=== PATIENT | female | born 1950 | race Caucasian/White ===

== ENCOUNTER 2021-05-16 18:31 | Inpatient (IN) ==
[2021-05-17] MEDS ORDERED: Naloxone 0.4 MG/ML INJ IVP PRN (00:32)
[2021-05-17 01:33] LABS: Hematocrit 41.5 % (35.3-44.9); Hemoglobin 13.3 g/dL (11.5-15.4); Mean Corpuscular Hemoglobin 30.2 pg (28.0-33.3); Mean Corpuscular Volume 94.3 fL (83.0-100.0); Mean Platelet Volume 9.5 fL (9.4-12.4); Platelet Count 159 K/mcL (140-400); Red Cell Distribution Width 14.7 % (11.5-14.5); White Blood Count 3.8 K/mcL (4.3-11.1)
[2021-05-17 01:36] LABS: VBG Ionized Calcium 1.09 mmol/L (1.15-1.35)
[2021-05-17 01:44] LABS: INR 1.1; Prothrombin Time 13.1 Seconds (9.4-12.1)
[2021-05-17 01:47] LABS: Activated Partial Thrombo Time 26.5 Seconds (26.0-36.0)
[2021-05-17 01:53] LABS: Calcium 8.1 mg/dL (8.6-10.3); Magnesium 2.8 mg/dL (1.6-2.6); Phosphorous 8.4 mg/dL (2.7-4.5); Potassium 5.1 mEq/L (3.5-5.1)
[2021-05-17] MEDS ORDERED: Vancomycin 1 EACH in 0.9 % Sodium Chloride 250 ML IVPB PRN (02:00)
[2021-05-17] MEDS ORDERED: Vancomycin 1,250 MG/262.5 ML IV.SOLN IVPB ONE ×2 (02:00→06:00)
[2021-05-17] MEDS ORDERED: D5% in Lactated Ringers 1,000 ML IVC SCH (02:00)
[2021-05-17 02:07] LABS: Eosinophils # 0.2 K/mcL (0.0-0.6); Monocytes # 0.1 K/mcL (0.0-1.3); Neutrophils # 2.6 K/mcL (1.6-8.9)
[2021-05-17 02:08] LABS: Platelet Estimate Normal (Normal)
[2021-05-17] MEDS ORDERED: Ringers Solution, Lactated 1,000 ML IVC ONE (02:33)
[2021-05-17] MEDS: Calcium Gluconate 1gm/50mL 1 GM/50 ML BAG IVPB SCH ×2 (02:53→04:10)
[2021-05-17] MEDS ORDERED: Piperacillin/Tazobactam 3.375 GM in 0.9 % Sodium Chloride Mini Bag 100 ML IVPB SCH ×2 (06:00→08:00)
[2021-05-17] MEDS ORDERED: Perflutren Lipid Microsphere 1.3 ML in 0.9 % Sodium Chloride 8.7 ML IVP PRN (07:32)
[2021-05-17] MEDS: Pantoprazole 40 MG VIAL IVP SCH (09:06)
[2021-05-17] MEDS: Aspirin Enteric Coated 81 MG Tablet PO SCH (10:20)
[2021-05-17] MEDS: *HR* Amiodarone 200 MG TABLET PO SCH (10:20)
[2021-05-17] MEDS: Sodium Bicarbonate 150 MEQ in Water for inj. (sterile) 1,000 ML IVC SCH ×2 (10:20→23:34)
[2021-05-17] MEDS: Hydrocortisone Sodium Succ 100 MG/2 ML VIAL IVP SCH ×4 (10:20→23:33)
[2021-05-17 11:28] LABS: Bacteria,Urine Few per hpf (None-Few); Bilirubin,Urine Negative (Negative); Blood,Urine Trace (Negative); Clarity,Urine Turbid (Clear); Color,Urine Light-Yellow (Yellow); Glucose,Urine (UA) 300 mg/dL (Normal); Hyaline Casts,Urine Few per lpf (None Seen); Ketones,Urine Negative (Negative); Leukocyte Esterase,Urine Negative (Negative); Mucus,Urine Few per lpf (None-Few); Nitrite,Urine Negative (Negative); Protein,Urine 50 mg/dL (Neg-Trace); RBC,Urine 0-3 per hpf (0-3); Specific Gravity,Urine 1.016 (1.010-1.025); Squamous Epithelial Cell,Urine Few per hpf (None-Few); Urobilinogen,Urine Normal (Normal)
[2021-05-17 11:29] LABS: Protein/Creatinine Ratio,Urine 2.08 mg/mg (0.00-0.20); Sodium, Urine 107.9 mEq/L
[2021-05-17 11:32] LABS: Potassium 4.6 mEq/L (3.5-5.1)
[2021-05-17 12:33] LABS: Calcium 8.5 mg/dL (8.6-10.3)
[2021-05-17] MEDS ORDERED: *HR* Heparin 10,000 UNIT/10 ML VIAL IV PRN (14:50)
[2021-05-17] MEDS ORDERED: Albumin 25% 25gram/100mL 25 GM/100 ML IV.SOLN IVPB PRN (14:50)
[2021-05-17] MEDS ORDERED: 0.9 % Sodium Chloride 250 ML IVC PRN (14:50)
[2021-05-17] MEDS ORDERED: 0.9 % Sodium Chloride 1,000 ML PRIME SCH (15:00)
[2021-05-17 15:15] LABS: C.difficile Toxin A/B Gene PCR DETECTED (Not detect); Campylobacter by PCR DETECTED (Not detect); Cryptosporidium by PCR Not detected (Not detect); Cyclospora cayetanensis PCR Not detected (Not detect); E. coli O157 by PCR Not detected (Not detect); Entamoeba histolytica PCR Not detected (Not detect); Enteroaggregative E.coli(EAEC) Not detected (Not detect); Enteropathogenic E.coli(EPEC) Not detected (Not detect); Enterotoxigenic E.coli (ETEC) Not detected (Not detect); Plesiomonas shigelloides PCR Not detected (Not detect); Salmonella PCR Not detected (Not detect); Shig/EnteroinvasiveE coli EIEC Not detected (Not detect); Shigalike tox-prod E coli STEC Not detected (Not detect); Vibrio PCR Not detected (Not detect); Vibrio cholerae PCR Not detected (Not detect); Yersinia enterocolitica PCR Not detected (Not detect)
[2021-05-17 15:16] LABS: Adenovirus F 40/41 PCR Not detected (Not detect); Astrovirus PCR Not detected (Not detect); Giardia lamblia PCR Not detected (Not detect); Norovirus GI/GII PCR Not detected (Not detect); Rotavirus A PCR Not detected (Not detect); Sapovirus PCR Not detected (Not detect)
[2021-05-17] MEDS: MetroNIDAZOLE 500 MG/100 ML 500 MG/100 ML BAG IVPB SCH ×2 (16:11→23:33)
[2021-05-17] MEDS: Azithromycin 250 MG TABLET PO SCH (16:11)
[2021-05-17 16:19] LABS: Hepatitis B Surface Antibody < 3.10 mIU/mL
[2021-05-17 16:30] LABS: Hepatitis B Surface Antigen Nonreactive (Nonreactive)
[2021-05-17] MEDS: *HR* Heparin 5,000 UNIT/ML VIAL SQ SCH (18:18)
[2021-05-17 22:28] LABS: Calcium 8.5 mg/dL (8.6-10.3); Potassium 4.7 mEq/L (3.5-5.1)
[2021-05-18] MEDS: Hydrocortisone Sodium Succ 100 MG/2 ML VIAL IVP SCH (05:00)
[2021-05-18] MEDS: *HR* Heparin 5,000 UNIT/ML VIAL SQ SCH ×2 (05:00→17:15)
[2021-05-18 06:12] LABS: Mean Platelet Volume 9.5 fL (9.4-12.4); Red Cell Distribution Width 14.5 % (11.5-14.5)
[2021-05-18 06:14] LABS: Hematocrit 40.6 % (35.3-44.9); Hemoglobin 13.4 g/dL (11.5-15.4); Immature Granulocytes % 4.2 % (0-4); Lymphocytes # 0.3 K/mcL (0.6-4.6); Lymphocytes % 21.8 %; Mean Corpuscular Hemoglobin 29.9 pg (28.0-33.3); Mean Corpuscular Volume 90.6 fL (83.0-100.0); Monocytes # 0.1 K/mcL (0.0-1.3); Monocytes % 4.2 %; Platelet Count 182 K/mcL (140-400); Red Blood Count 4.48 M/mcL (3.82-4.97); Segmented Neutrophils % 69.8 %; White Blood Count 1.4 K/mcL (4.3-11.1)
[2021-05-18 06:15] LABS: VBG Ionized Calcium 1.11 mmol/L (1.15-1.35)
[2021-05-18 06:31] LABS: Albumin 3.3 g/dL (3.5-5.7); Bilirubin,Total 0.6 mg/dL (0.3-1.0); Calcium 8.7 mg/dL (8.6-10.3); Globulin 3.3 g/dL (2.4-3.5); Magnesium 2.4 mg/dL (1.6-2.6); Phosphorous 4.5 mg/dL (2.7-4.5); Potassium 4.4 mEq/L (3.5-5.1); Total Protein 6.6 g/dL (6.4-8.9)
[2021-05-18] MEDS: Aspirin Enteric Coated 81 MG Tablet PO SCH (08:04)
[2021-05-18] MEDS: predniSONE 5 MG TABLET PO SCH (08:04)
[2021-05-18] MEDS: *HR* Amiodarone 200 MG TABLET PO SCH (08:05)
[2021-05-18] MEDS: Folic Acid 1 MG TABLET PO SCH (08:05)
[2021-05-18] MEDS ORDERED: *HR* Digoxin 0.125 MG TABLET PO SCH (09:00)
[2021-05-18] MEDS: MetroNIDAZOLE 500 MG/100 ML 500 MG/100 ML BAG IVPB SCH (09:40)
[2021-05-18] MEDS: Pantoprazole 40 MG VIAL IVP SCH (09:40)
[2021-05-18] MEDS: Vancomycin Oral Soln 125 MG/2.5 ML UDC PO SCH ×4 (09:47→22:36)
[2021-05-18] MEDS: carvediloL 25 MG TABLET PO SCH ×2 (09:48→22:35)
[2021-05-18] MEDS: Lactobacillus 1 EACH CAP.SPRINK PO SCH (09:48)
[2021-05-18] MEDS: Budesonide/Formoterol 80/4.5 1 PUFF INH IH SCH (10:33)
[2021-05-18] MEDS ORDERED: Ringers Solution, Lactated 1,000 ML IVC SCH (14:00)
[2021-05-18] MEDS ORDERED: Dextrose Gel 15 GM/37.5 ML TUBE PO PRN ×2 (14:21)
[2021-05-18] MEDS ORDERED: D5% in Water 1,000 ML IVC PRN (14:21)
[2021-05-18] MEDS ORDERED: *HR* Dextrose 50 % in Water (Vial) 50 ML VIAL IVP PRN (14:21)
[2021-05-18] MEDS: Azithromycin 250 MG TABLET PO SCH (15:08)
[2021-05-18] MEDS: Insulin LISPRO 300 UNITS/3 ML VIAL SUBQ SCH (17:14)
[2021-05-19 02:05] LABS: Hemoglobin 12.3 g/dL (11.5-15.4); Immature Granulocytes % 0.6 % (0-4); Red Cell Distribution Width 14.1 % (11.5-14.5)
[2021-05-19 02:06] LABS: Hematocrit 36.3 % (35.3-44.9); Mean Corpuscular HGB Conc 33.9 g/dL (31.6-35.5); Mean Corpuscular Hemoglobin 30.5 pg (28.0-33.3); Mean Corpuscular Volume 90.1 fL (83.0-100.0); Mean Platelet Volume 9.2 fL (9.4-12.4); Platelet Count 174 K/mcL (140-400); Red Blood Count 4.03 M/mcL (3.82-4.97); Segmented Neutrophils % 52.3 %; White Blood Count 1.7 K/mcL (4.3-11.1)
[2021-05-19 02:07] LABS: Eosinophils % 2.3 %; Lymphocytes # 0.7 K/mcL (0.6-4.6); Lymphocytes % 40.7 %; Monocytes # 0.1 K/mcL (0.0-1.3); Monocytes % 4.1 %; Neutrophils # 0.9 K/mcL (1.6-8.9)
[2021-05-19 02:19] LABS: Calcium 8.1 mg/dL (8.6-10.3); Magnesium 2.2 mg/dL (1.6-2.6); Phosphorous 2.2 mg/dL (2.7-4.5); Potassium 3.9 mEq/L (3.5-5.1)
[2021-05-19 02:45] LABS: Platelet Estimate Normal (Normal)
[2021-05-19 03:32] LABS: Estimated Average Glucose 192 mg/dl; Hemoglobin A1C 8.3 %
[2021-05-19] MEDS: MetroNIDAZOLE 500 MG/100 ML 500 MG/100 ML BAG IVPB SCH (04:44)
[2021-05-19] MEDS: *HR* Heparin 5,000 UNIT/ML VIAL SQ SCH (05:40)
[2021-05-19] MEDS: Budesonide/Formoterol 80/4.5 1 PUFF INH IH SCH (07:52)
[2021-05-19] MEDS: predniSONE 5 MG TABLET PO SCH (09:43)
[2021-05-19] MEDS: *HR* Amiodarone 200 MG TABLET PO SCH (09:43)
[2021-05-19] MEDS: Lactobacillus 1 EACH CAP.SPRINK PO SCH (09:43)
[2021-05-19] MEDS: Aspirin Enteric Coated 81 MG Tablet PO SCH (09:43)
[2021-05-19] MEDS: carvediloL 25 MG TABLET PO SCH (09:43)
[2021-05-19] MEDS: Folic Acid 1 MG TABLET PO SCH (09:43)
[2021-05-19] MEDS: Vancomycin Oral Soln 125 MG/2.5 ML UDC PO SCH (09:44)
[2021-05-19] MEDS: Insulin LISPRO 300 UNITS/3 ML VIAL SUBQ SCH ×2 (09:52→13:19)
[2021-05-19 12:38] VITALS: BP 135/85; PULSE 52; TEMP 97.4; O2SAT 98
== END 2021-05-19 15:43 | disposition home or self-care (01) | DRG 720 ==
LOC: ICNU → SUATTDRO 23:48 → OBSVTOIN 23:48 → 2ANU 05-18 18:29
PROVIDERS: ADMIT Pediatrics; ATTEND Internal Medicine